=== PATIENT | male | born 1980 | race Caucasian/White ===

== ENCOUNTER 2021-01-26 12:13 | Emergency (ER) | payer OTHER ==
[~2021-01-26] VITALS: Ht 177.8 cm; Wt 95.0 kg
[2021-01-26] MEDS ORDERED: ETOD500T2 MT (13:37)
[2021-01-26] MEDS ORDERED: CYCL10TA7 MT (13:37)
[2021-01-26] MEDS ORDERED: IBUPROFEN 600MG TABLET PO ONE (13:45)
[2021-01-26 13:56] VITALS: BP 120/78
== END 2021-01-26 13:57 | disposition home or self-care (01) ==
LOC: ER 12:13
DX: M54.2 Cervicalgia (principal); Z88.0 Allergy status to penicillin
CPT/HCPCS: 99282